=== PATIENT | female | born 1990 | race Two or more races ===

== ENCOUNTER 2017-10-28 18:37 | Emergency (ER) | payer SELFPAY ==
[2017-10-28 18:41] VITALS: BP 106/79; PULSE 75; RESP 16; TEMP 98.2; O2SAT 100
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
[2017-10-28 19:46] LABS: HEMOGLOBIN 13.4 g/dL (12.0-16.0); MEAN CELL VOLUME 90.8 fl (81.0-99.0); MEAN CORPUSCULAR HEMOGLOBIN 30.7 pg (27.0-31.0); MEAN CORPUSCULAR HGB CONC 33.8 g/dL (33.0-37.0); RBC 4.37 Mil/uL (3.80-5.20); RED CELL DISTRIBUTION WIDTH 13.4 % (11.5-14.5); WHITE BLOOD COUNT 13.6 K/uL (4.8-10.8)
[2017-10-28 20:01] LABS: ALB/GLOB RATIO 1.5 (1.0-2.1); ALBUMIN 4.9 g/dL (3.5-5.0); ALT/SGPT 28 U/L (9-52); AST/SGOT 27 U/L (14-36); BLOOD UREA NITROGEN 12 mg/dl (7-17); CALCIUM 9.1 mg/dL (8.4-10.2); GFR AFRICAN-AMERICAN > 60; GFR NON-AFRICAN AMERICAN > 60
[2017-10-28 20:04] LABS: BARBITURATES, UR NEGATIVE (NEGATIVE); BENZODIAZEPINES, UR NEGATIVE (NEGATIVE); OPIATES, UR NEGATIVE (NEGATIVE); PHENCYCLIDINE, UR NEGATIVE (NEGATIVE)
--- NOTE | 2017-10-28 20:42 | ED PDOC ---
- Laboratory Results Result Diagrams: 10/28/17 19:43 10/28/17 19:43 Interpretation Of Abnormal: Utox noted to be positive for cannabinoid and amphetamines. Etoh level 240. - ECG O2 Sat by Pulse Oximetry: 100 (RA) Medical Decision Making Medical Decision Making: Case endorsed to Mykel TALAVERA at 1999 due to shift change. Pertinent details reviewed. Patient pending clinical sobriety, labs, and CT head. 2024 Patient becoming verbally aggressive to ED staff and noncooperative. Patient placed on 1:1 observation and restraints placed. Patient pending CT head. 2028 Patient treated with Ativan 2mg IM and Haldol 5mg IM. 2044 Patient sleeping comfortably in bed. No acute distress noted. 2119 4 point restraints removed. [address] without further incident. Awaiting CT results. 2[address] CT resulted FINDINGS: Limitations: Suboptimal positioning. Streak artifact - mild. Brain: No definite intracranial hemorrhage. No mass. No definite edema. Ventricles: No hydrocephalus. Bones/joints: No acute fracture. Soft tissues: Unremarkable. Sinuses: No acute sinusitis. Mastoid air cells: No mastoid effusion. Orbits: Unremarkable as visualized. IMPRESSION: 1. No definite intracranial hemorrhage. Thank you for allowing us to participate in the care of your patient. Dictated and Authenticated by: Joseluis Montano MD 10/28/2017 10:30 PM Eastern Time ([place] & [place]) 0150 Patient sleeping ED bed comfortably. VSS. Pending clinical sobriety. 0245 Patient ambulated to ED nursing station requesting to go home. Patient awake, alert, and oriented to person, place, and time. Patient ambulating with a steady gait and states she has a ride home with her father. CT head and lab results discussed with understanding. Patient stable for discharge Patient advised to follow up with PMD and to return to ED With any new or worsening symptoms. Disposition Counseled Patient/Family Regarding: Studies Performed, Diagnosis, Need For Followup - Clinical Impression Clinical Impression: Alcohol abuse with intoxication, Alcohol ingestion - POA Present On Arrival: None - Disposition Referrals: [facility] [Outside] Disposition: Routine/Home Disposition Time: 02:50 Condition: STABLE Instructions: Alcohol Abuse and Alcoholism (DC), Effects of Alcohol on Your Health Forms: [employer] ([place]) Print Language: INDIAN
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
== END 2017-10-29 03:25 | disposition home or self-care (01) ==
LOC: H.ER 18:37
DX: F10.129 Alcohol abuse with intoxication, unspecified (principal); Z02.89 Encounter for other administrative examinations
CPT/HCPCS: 70450; 80053; 81025; 85027; 96372; 99283; G0480; J1630; J2060